=== PATIENT | male | born 1975 | race American Indian/Alaskan Native ===

== ENCOUNTER 2018-08-30 09:42 | Emergency (ER) | payer OTHER ==
[2018-08-30 10:22] VITALS: TEMP 99; BMI 30.9
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
[2018-08-30 11:25] LABS: BASO # 0.03 K/mm3 (0.0-2.0); BASO % 0.7 % (0.0-3.0); EOS # 0.3 (0.0-0.7); EOS % 6.4 % (1.5-5.0); HEMOGLOBIN 13.2 g/dL (14.0-18.0); LYMPH # 1.9 (1.2-3.4); LYMPH % 42.7 % (22.0-35.0); MEAN CELL VOLUME 93.5 fl (80.0-105.0); MEAN CORPUSCULAR HEMOGLOBIN 31.7 pg (25.0-35.0); MEAN CORPUSCULAR HGB CONC 33.8 g/dl (31.0-37.0); MONO # 0.3 (0.1-0.6); MONO % 7.3 % (1.0-6.0); RBC 4.17 10^6/uL (3.5-6.1); RED CELL DISTRIBUTION WIDTH 13.2 % (11.5-14.5); WHITE BLOOD COUNT 4.4 10^3/uL (4.5-11.0)
[2018-08-30 11:32] LABS: ALB/GLOB RATIO 1.4 (1.1-1.8); ALBUMIN 4.6 g/dL (3.0-4.8); ALT/SGPT 33 U/L (7-56); AST/SGOT 41 U/L (17-59); BLOOD UREA NITROGEN 12 mg/dL (7-21); CALCIUM 9.4 mg/dL (8.4-10.5); GFR NON-AFRICAN AMERICAN > 60
--- NOTE | 2018-08-30 12:44 | CT ---
Date of service: 08/30/2018 PROCEDURE: CT Abdomen and Pelvis with contrast HISTORY: rt.inguinal hernia? COMPARISON: None. TECHNIQUE: Contrast dose: 150 mL Omnipaque 350 Radiation dose: Total exam DLP = 842.92 mGy-cm. This CT exam was performed using one or more of the following dose reduction techniques: Automated exposure control, adjustment of the mA and/or kV according to patient size, and/or use of iterative reconstruction technique. FINDINGS: LOWER THORAX: Unremarkable. LIVER: Normal size, contour and attenuation. Few small nonspecific low-attenuation lesions in both the right and left hepatic lobe, to 8 mm diameter. No biliary dilatation. Smooth contour. GALLBLADDER AND BILE DUCTS: Unremarkable. PANCREAS: Unremarkable. No gross lesion or ductal dilatation. SPLEEN: Unremarkable. ADRENALS: Unremarkable. No mass. KIDNEYS AND URETERS: Unremarkable. No hydronephrosis. No solid mass. VASCULATURE: Unremarkable. No aortic aneurysm. No aortic atherosclerotic calcification or mural plaque present. BOWEL: Scattered colonic diverticula. No bowel obstruction. Mild retained stool. No abnormal bowel loops. APPENDIX: Normal appendix. PERITONEUM: Unremarkable. No free fluid. No free air. LYMPH NODES: Unremarkable. No enlarged lymph nodes. BLADDER: Unremarkable. REPRODUCTIVE: Prostate significant for metallic radiopaque foreign body in the prostate bed, uncertain significance. Question is raised as to whether this could be related to prior prostate irradiation. BONES: No acute fracture. OTHER FINDINGS: None. IMPRESSION: No acute abnormality. No evidence of inguinal hernia. Metallic radiopaque foreign body in prostate bed, to be correlated with history. Scattered colonic diverticula. Minor findings as above.
[2018-08-30 14:10] VITALS: BP 132/88; PULSE 91; RESP 17; O2SAT 95
== END 2018-08-30 14:11 | disposition home or self-care (01) ==
LOC: ED 09:42
DX: S39.011A Strain of muscle, fascia and tendon of abdomen, initial encounter (principal); X50.0XXA Overexertion from strenuous movement or load, initial encounter
CPT/HCPCS: 74177; 80053; 85025; 96374; 99283; J1885; Q9967